=== PATIENT | female | born 1985 | race Caucasian/White ===

== ENCOUNTER 2023-02-19 23:07 | Emergency (ER) | payer MEDICAID ==
[~2023-02-19] VITALS: Ht 147.3 cm; Wt 60.0 kg
[2023-02-19] MEDS ORDERED: AMOX-117 PO (23:41)
[2023-02-19 23:49] VITALS: BP 123/75; PULSE 76; RESP 16; TEMP 97.6; O2SAT 97
== END 2023-02-19 23:50 | disposition home or self-care (01) ==
LOC: ER 23:09
DX: S01.85XA Open bite of other part of head, initial encounter (principal); Z88.5 Allergy status to narcotic agent; Z88.8 Allergy status to other drugs, medicaments and biological substances; W55.01XA Bitten by cat, initial encounter; Y93.89 Activity, other specified; Y92.89 Other specified places as the place of occurrence of the external cause; Y99.8 Other external cause status
CPT/HCPCS: 99283

== ENCOUNTER 2023-07-15 10:22 | Emergency (ER) | payer BC, MEDICAID ==
[~2023-07-15] VITALS: Ht 147.3 cm; Wt 61.1 kg
[2023-07-15] MEDS ORDERED: ketorolac trometh. 30mg/ml inj. IV ONE (12:10)
[2023-07-15] MEDS: ketorolac tromethamine 15mg/ml inj. IV ONE (12:21)
[2023-07-15] MEDS ORDERED: IBUP-1985 PO (12:26)
[2023-07-15] MEDS: ketorolac tromethamine 15mg/ml inj. IM ONE (12:26)
[2023-07-15 12:47] VITALS: BP 149/80; PULSE 69; RESP 17; TEMP 98; O2SAT 99
== END 2023-07-15 12:48 | disposition home or self-care (01) ==
LOC: ER 10:22 → EEVIPCON 10:22 → ER 12:48
DX: M10.9 Gout, unspecified (principal); Z88.8 Allergy status to other drugs, medicaments and biological substances; Z79.899 Other long term (current) drug therapy
CPT/HCPCS: 73630; 96372; 99283; J1885

== ENCOUNTER 2023-07-26 07:11 | Outpatient (CLI) | payer BC ==
[~2023-07-26 07:11] MED LIST: IBUP-1985 PO
[2023-07-26 07:40] LABS: BASOPHILS # (AUTO) 0.1 X10'3 (0-0.2); BASOPHILS % (AUTO) 0.5 % (0-1); EOSINOPHILS # (AUTO) 0.2 X10'3 (0-0.9); EOSINOPHILS % (AUTO) 1.7 % (0-6); HEMATOCRIT 41.2 % (35.0-45.0); HEMOGLOBIN 13.8 g/dl (12.0-16.0); LYMPHOCYTES # (AUTO) 3.7 X10'3 (1.1-4.8); LYMPHOCYTES % (AUTO) 37.7 % (21-51); MEAN CORPUSCULAR HEMOGLOBIN 28.6 PG (27.0-31.0); MEAN CORPUSCULAR HGB CONC 33.4 g/dL (33.0-36.5); MEAN CORPUSCULAR VOLUME 85.8 FL (78-98); MONOCYTES # (AUTO) 0.7 X10'3 (0-0.9); MONOCYTES % (AUTO) 7.5 % (2-12); NEUTROPHILS # (AUTO) 5.1 X10'3 (1.8-7.7); NEUTROPHILS % (AUTO) 52.6 % (42-75); PLATELET COUNT 241 X10'3 (140-440); RED BLOOD COUNT 4.81 X10'6 (4.20-5.60); RED CELL DISTRIBUTION WIDTH 13.2 % (11.5-14.5); WHITE BLOOD COUNT 9.7 X10'3 (4.5-11.0)
[2023-07-26 08:14] LABS: ALANINE AMINOTRANSFERASE 35 U/L (12-78); ALBUMIN 3.7 G/DL (3.4-5.0); ALBUMIN/GLOBULIN RATIO 0.9 (1.1-1.5); ALKALINE PHOSPHATASE 88 IU/L (46-116); ANION GAP 12 (8-16); ASPARTATE AMINO TRANSFERASE 17 U/L (10-37); BILIRUBIN,TOTAL 0.2 MG/DL (0.1-1.0); BLOOD UREA NITROGEN 23 MG/DL (7-18); BUN/CREATININE RATIO 32.9 (10.0-20.0); CALCIUM 9.2 MG/DL (8.5-10.1); CHLORIDE 101 MMOL/L (99-107); CHOL/HDL RATIO 5.3 (0.00-4.99); CHOLESTEROL 192 MG/DL (0-200); GLUCOSE 89 MG/DL (70-104); HDL CHOLESTEROL 36 MG/DL (35-60); LDL CHOLESTEROL 144 MG/DL (50-100); POTASSIUM 3.8 MMOL/L (3.5-5.1); SODIUM 139 MMOL/L (135-145); THYROID STIMULATING HORMONE 10.03 ulU/ml (0.34-4.50); TOTAL CARBON DIOXIDE 26.4 MMOL/L (24-32); TOTAL PROTEIN 7.9 G/DL (6.4-8.2); TRIGLYCERIDES 109 MG/DL (20-135); eGFR > 90 ML/MIN
== END 2023-07-26 23:59 | disposition home or self-care (01) ==
LOC: LAB 07:11
PROVIDERS: ATTEND Nurse Practitioner
DX: Z13.220 Encounter for screening for lipoid disorders (principal); R53.83 Other fatigue; Z87.42 Personal history of other diseases of the female genital tract
CPT/HCPCS: 36415; 80053; 80061; 84443; 85025; 85651

== ENCOUNTER 2023-10-17 08:22 | Outpatient (CLI) | payer BC | END 2023-10-17 23:59 | disposition home or self-care (01) | LOC: RAD 08:22 | PROVIDERS: ATTEND Nurse Practitioner | DX: N83.202 Unspecified ovarian cyst, left side (principal); R19.00 Intra-abdominal and pelvic swelling, mass and lump, unspecified site | CPT/HCPCS: 76830; 76856; 93976 ==

== ENCOUNTER 2025-03-20 06:36 | Outpatient (CLI) | payer BC ==
[~2025-03-20 06:36] MED LIST changes: -IBUP-1985 PO; +IBUP600T52 PO
[2025-03-20 07:10] LABS: MEAN PLATELET VOLUME 8.2 FL (7.4-10.4); RED CELL DISTRIBUTION WIDTH 13.9 % (11.5-14.5)
[2025-03-20 07:24] LABS: % IRON SATURATION 17 % (11-46)
[2025-03-20 07:31] LABS: CHOL/HDL RATIO 4.8 (0.00-4.99); LDL CHOLESTEROL 155 MG/DL (50-100)
[2025-03-21 13:14] LABS: ESTRADIOL 82.7 pg/mL (.); FSH, SERUM 13.0 mIU/mL (.); LUTEINIZING HORMONE 15.3 mIU/mL (.); PROGESTERONE 4.6 ng/mL (.); TESTOSTERONE, SERUM 45 ng/dL (8-60)
[2025-03-22 11:12] LABS: TESTOSTERONE, FREE, DIRECT 3.4 pg/mL (0.0-4.2)
== END 2025-03-20 23:59 | disposition home or self-care (01) ==
LOC: RAD 06:36
PROVIDERS: ATTEND Nurse Practitioner
DX: Z13.220 Encounter for screening for lipoid disorders (principal); E34.9 Endocrine disorder, unspecified; R53.83 Other fatigue; N97.9 Female infertility, unspecified; K90.9 Intestinal malabsorption, unspecified; Z87.42 Personal history of other diseases of the female genital tract
CPT/HCPCS: 36415; 80061; 82306; 82607; 82670; 82728; 82746; 83001; 83002; 83540; 83550; 84144; 84270; 84402; 84403; 84443; 85025; 85651